=== PATIENT | female | born 1955 | race Caucasian/White ===

== ENCOUNTER → 2018-06-19 22:54 | Outpatient (CLI) | payer MEDICAID ==
[2016-05-04 12:03] VITALS: BMI 34.2
[~2018-06-19 22:54] MED LIST: ACCURETIC 10-121 TAB PO; ANAPROX DS550 MG PO; CRESTOR20 MG PO; GLUCOTROL XL 5 M5 MG PO; JANUMET 50-1,001 TAB PO; JARDIANCE25 MG PO; NEXIUM40 MG PO; TRICOR145 MG PO; VISTARIL50 MG PO
== END | disposition home or self-care (01) ==
LOC: D.MAMMO 06-12 10:00
DX: Z12.31 Encounter for screening mammogram for malignant neoplasm of breast (principal)

== ENCOUNTER 2018-11-26 14:38 | Emergency (ER) | payer MEDICAID ==
[~2018-11-26] VITALS: Ht 160 cm; Wt 78.6 kg
[2018-11-26 14:42] VITALS: Ht 160 cm; Wt 78.6 kg
[2018-11-26 15:29] LABS: BASOPHILS 0.4 % (0-2); EOSINOPHILS 0.5 % (0-7); HEMATOCRIT 34.3 % (36.0-48.0); HEMOGLOBIN 10.8 g/dL (12-16); IMMATURE GRANULOCYTES 0.3 % (0-5); LYMPHOCYTES 25.2 % (15-50); MCH 22.6 pg (26.0-34.0); MCHC 31.5 g/dL (31.0-37.0); MCV 71.9 fL (80.0-100.0); MEAN PLATELET VOLUME 10.1 fL (7.4-10.4); MONOCYTES 8.7 % (2-11); NEUTROPHILS 64.9 % (40-80); PLATELET COUNT 382 10x3/uL (130-400); RBC 4.77 10x6/uL (4.00-5.40); RDW 18.8 % (11.5-14.5); WBC 7.9 10x3/uL (4.8-10.8)
[2018-11-26 15:47] LABS: ALBUMIN 3.4 g/dL (3.4-5.0); ANION GAP 18.4 mmol/L (8-16); BILIRUBIN - TOTAL 0.46 mg/dL (0.2-1.3); CALCIUM 8.7 mg/dL (8.5-10.1); CARBON DIOXIDE 22.8 mmol/L (21.0-32.0); CREATININE - SERUM 1.7 mg/dL (0.6-1.3); POTASSIUM - SERUM 4.2 mmol/L (3.5-5.1); PROTEIN - SERUM 6.4 g/dL (6.4-8.2)
[2018-11-26 17:07] LABS: APPEARANCE CLEAR (CLEAR); BILIRUBIN NEGATIVE (NEGATIVE); COLOR YELLOW (YELLOW); GLUCOSE 1000 mg/dL (NEGATIVE); KETONE NEGATIVE (NEGATIVE); NITRITE NEGATIVE (NEGATIVE); PROTEIN NEGATIVE (NEGATIVE); SPECIFIC GRAVITY 1.025 (1.005-1.020); UROBILINOGEN NORMAL (NORMAL)
[2018-11-26] MEDS ORDERED: TAMIFLU75 MG PO (17:54)
[2018-11-26] MEDS ORDERED: GUAIFENESI100 MG/5 M PO (17:54)
[2018-11-26 18:51] VITALS: BP 121/61
== END 2018-11-26 18:51 | disposition home or self-care (01) ==
LOC: D.ER 14:38
PROVIDERS: Family Medicine
DX: J09.X2 Influenza due to identified novel influenza A virus with other respiratory manifestations (principal); E86.0 Dehydration

== ENCOUNTER 2019-05-04 21:28 | Observation (INO) | payer MEDICAID ==
[~2019-05-04] VITALS: Ht 160 cm; Wt 86.4 kg
--- NOTE | ~2019-05-04 | DS ---
PATIENT:BEATRIZ DOWELL :57 MEDICAL RECORD: [id number] DISCHARGE SUMMARY ADMISSION DATE: 05/04/19 DISCHARGE DATE: 05/05/19 DATE OF SERVICE: 05/05/2019 DATE OF DISCHARGE: 05/05/2019 DIAGNOSES: 1. Angina. 2. Shortness of breath. 3. Coronary artery disease. 4. Hypertension. 5. Hyperlipidemia. 6. Plp-mhgmeei-iijgsueiq diabetes. 7. Tachycardia. HOSPITAL COURSE: Ms. Dowell presents with anginal symptomatology and shortness of breath. Her troponin is normal. EKG is normal. She is on no medical therapy, had the addition of long-acting nitrate and beta-vilma. If she continues to have the symptomatology, would risk stratify with stress testing with Cardiolite imaging versus proceeding directly to coronary angiography. TRANSINT:[id number] Voice Confirmation ID: [id number] DOCUMENT ID: [id number] STACEY ANGEL MD CC: [id number] DICTATION DATE: 05/05/19 1114 WORKER'S COMPENSATION CLAIMS EXAMINER: 05/05/19 2343 DIS IN 05/05/19 [id number] [place] [address]
--- NOTE | ~2019-05-04 | HP ---
PATIENT: BEATRIZ DOWELL MEDICAL RECORD: [id number] ACCOUNT: [id number] LOCATION:[address] : 57 ADMISSION DATE: 05/04/19 PCP: LOUISE PICHARDO MD HISTORY AND PHYSICAL EXAMINATION DIAGNOSES: 1. Angina. 2. Shortness of breath. 3. Coronary artery disease. 4. Hypertension. 5. Hyperlipidemia. 6. Tachycardia. 7. Noninsulin-dependent diabetes. HISTORY OF PRESENT ILLNESS: Mrs. Dowell was seen in the office with increasing chest pain and shortness of breath. She presents to the hospital with the same. She is scheduled for a nuclear stress test and echocardiogram in 2 weeks. She is not on anything for blood pressure or tachycardia. She is pain free upon admit now. She has been having the shortness of breath and chest pain in an escalating fashion. PHYSICAL EXAMINATION: GENERAL APPEARANCE: Well-nourished, well-developed, appears stated age. Level of distress, comfortable. PSYCHIATRIC: Mental status, alert, normal affect. Orientation, oriented to time, place and person. EYES: Lids and conjunctiva, noninjected. No discharge, no pallor. ENT: Lips, teeth, gums, normal dentition. Oropharynx, no cyanosis, no pallor. NECK: Carotid arteries, bilateral normal upstroke, no bruits, no thrills. JUGULAR VEINS: No jugular venous pressure or distention. CERVICAL LYMPH NODES: Nontender, nonenlarged. THYROID: Not enlarged. Nontender. No nodules. LUNGS: Respiratory effort, unlabored. CHEST: Normal curvature. No thoracic deformity. No chest wall tenderness. Percussion, resonant. Auscultation, clear. No wheezes, no rales, no rhonchi. CARDIOVASCULAR: Precordial exam, nondisplaced. No heaves or pericardial thrills. Rate and rhythm, regular. Heart sounds, normal S1, normal S2. No S3, no gallop, no rub. Systolic murmur, not heard. Diastolic murmur, not heard. EXTREMITIES: No cyanosis, no edema. Peripheral pulses, full and equal in all extremities, except as noted. No bruits appreciated. ABDOMEN: Soft, nondistended. Normal aorta. No bruit. Nontender. No masses. Liver, nontender, no hepatomegaly. Spleen, nontender, no splenomegaly. MUSCULOSKELETAL: No joint tenderness. No joint swelling. No erythema. NEUROLOGICAL: Normal gait, normal strength, normal tone. SKIN: Warm and dry. OVERALL IMPRESSION: Normal EKG, normal troponin, but continued angina, on no medications. We will optimize her medical therapy with the addition of a beta-vilma and long-acting nitrate. If she continues to have discomfort despite this, we will either move up the stress test or go straight to coronary angiography if symptomatology warrants. TRANSINT:[id number] Voice Confirmation ID: [id number] DOCUMENT ID: [id number] HISTORY AND PHYSICAL [id number] BEATRIZ DOWELL JEFFREY MD CC: [id number] DICTATION DATE: 05/05/19 1114 GRAVEL MACHINE OPERATOR: 05/05/19 1143 DIS IN 05/05/19 [id number] [place] [address]
[~2019-05-04 21:28] MED LIST changes: -ANAPROX DS550 MG PO; -CRESTOR20 MG PO; +GUAIFENESI100 MG/5 M PO; +LIPITOR20 MG PO; +NAPROSYN500 MG PO; +TAMIFLU75 MG PO
[2019-05-04 21:44] LABS: BASOPHILS 0.5 % (0-2); EOSINOPHILS 4.3 % (0-7); HEMATOCRIT 30.1 % (36.0-48.0); HEMOGLOBIN 8.9 g/dL (12-16); IMMATURE GRANULOCYTES 0.1 % (0-5); LYMPHOCYTES 37.4 % (15-50); MCH 20.2 pg (26.0-34.0); MCHC 29.6 g/dL (31.0-37.0); MCV 68.3 fL (80.0-100.0); MEAN PLATELET VOLUME 9.4 fL (7.4-10.4); MONOCYTES 7.9 % (2-11); NEUTROPHILS 49.8 % (40-80); PLATELET COUNT 404 10x3/uL (130-400); RBC 4.41 10x6/uL (4.00-5.40); RDW 17.9 % (11.5-14.5); WBC 9.6 10x3/uL (4.8-10.8)
[2019-05-04 21:54] LABS: INR 1.05 (0.85-1.17); PROTIME 13.2 SECONDS (11.6-15.0)
[2019-05-04 21:55] LABS: APTT 31.7 SECONDS (22.8-39.4)
[2019-05-04 22:06] LABS: ALKALINE PHOSPHATASE 64 U/L (46-116); ALT (SGPT) 14 U/L (10-68); BILIRUBIN - TOTAL 0.37 mg/dL (0.2-1.3); CALC OSMOLALITY 290 mosm/kg (275-300); CALCIUM 9.3 mg/dL (8.5-10.1); CARBON DIOXIDE 25.8 mmol/L (21.0-32.0); CHLORIDE - SERUM 104 mmol/L (98-107); CREATININE - SERUM 1.6 mg/dL (0.6-1.3); PROTEIN - SERUM 7.6 g/dL (6.4-8.2); SODIUM 142 mmol/L (136-145); UREA NITROGEN 22 mg/dL (7-18); eGFR NON AFRICAN AMERICAN 35 mL/min (90-120)
[2019-05-04 22:08] LABS: GLUCOSE 180 mg/dL (74-106)
[2019-05-04 22:21] LABS: CKMB 0.6 U/L (0.0-3.6); CREATINE KINASE 72 UL (21-215); MAGNESIUM - SERUM 2.3 mg/dL (1.8-2.4)
[2019-05-04 22:24] LABS: TROPONIN-I < 0.017 ng/mL (0.000-0.060)
--- NOTE | 2019-05-05 00:17 | NUR ---
pT IN WITH C/O CHEST PAIN THAT RADIATES TO HER RIGHT JAW. CHEST PAIN STARTED ABOUT 5 DAYS AGO, HAS GOTTEN WORSE, AT BEDSIDE.
[2019-05-05 00:20] VITALS: BP 132/79
[2019-05-05] MEDS ORDERED: PIOGLITAZONE15 MG PO (00:53)
[2019-05-05] MEDS ORDERED: BAYER CHEWABLE81 MG PO (00:54)
[2019-05-05] MEDS ORDERED: TRULICITY1.5 MG/0.5 SC (00:54)
[2019-05-05] MEDS ORDERED: INVOKANA300 MG PO (00:55)
[2019-05-05] MEDS ORDERED: TRAZODONE HCL150 MG PO (00:56)
--- NOTE | 2019-05-05 01:20 | NUR ---
PT ARRIVED TO ROOM 2116 FROM ER, SPOUSE AT BED SIDE. PT IS AAO, WEARING GLASSES AND UPPER DENTURES. TELEMETRY APPLIED, PHARMACY DONE. MED REC COMPLETE. HISTORY UP TO DATE. PT DENIES ANY NEEDS. SNACK GIVEN TO PT, THAN PT WILL BE NPO UNTIL SEEN BY CARDIOLOGY. NAME AND DATE PLACED ON BOARD. BED LOW AND CALL LIGHT IN REACH. LEFT AC 20G NOTED. WILL CPOC
[2019-05-05 01:31] VITALS: BP 141/66; Ht 160 cm; Wt 86.4 kg
[2019-05-05 04:00] VITALS: BP 130/63
[2019-05-05 04:36] LABS: BASOPHILS 0.5 % (0-2); EOSINOPHILS 4.4 % (0-7); HEMATOCRIT 27.3 % (36.0-48.0); HEMOGLOBIN 8.1 g/dL (12-16); IMMATURE GRANULOCYTES 0.3 % (0-5); LYMPHOCYTES 39.6 % (15-50); MCH 20.5 pg (26.0-34.0); MCHC 29.7 g/dL (31.0-37.0); MCV 68.9 fL (80.0-100.0); MEAN PLATELET VOLUME 9.2 fL (7.4-10.4); MONOCYTES 8.4 % (2-11); NEUTROPHILS 46.8 % (40-80); PLATELET COUNT 328 10x3/uL (130-400); RBC 3.96 10x6/uL (4.00-5.40); RDW 17.9 % (11.5-14.5); WBC 7.3 10x3/uL (4.8-10.8)
[2019-05-05 05:08] LABS: ALBUMIN 3.3 g/dL (3.4-5.0); ALKALINE PHOSPHATASE 52 U/L (46-116); ALT (SGPT) 11 U/L (10-68); BILIRUBIN - TOTAL 0.33 mg/dL (0.2-1.3); CARBON DIOXIDE 25.8 mmol/L (21.0-32.0); CHLORIDE - SERUM 108 mmol/L (98-107); CKMB 0.4 U/L (0.0-3.6); CREATINE KINASE 58 UL (21-215); CREATININE - SERUM 1.5 mg/dL (0.6-1.3); POTASSIUM - SERUM 3.9 mmol/L (3.5-5.1); PROTEIN - SERUM 6.6 g/dL (6.4-8.2); SODIUM 142 mmol/L (136-145); UREA NITROGEN 22 mg/dL (7-18); eGFR NON AFRICAN AMERICAN 37 mL/min (90-120)
[2019-05-05 05:09] LABS: CALC OSMOLALITY 285 mosm/kg (275-300); GLUCOSE 101 mg/dL (74-106); TROPONIN-I < 0.017 ng/mL (0.000-0.060)
--- NOTE | 2019-05-05 05:16 | NUR ---
GLUCOSE WITH MORNING LABS IS 101 NO INSULIN NEEDED PER SLIDING SCALE, HAT AND SPECIMEN CUP GIVEN FOR URINE COLLECTION. PT VERBALIZED UNDERSTANDING. PT HAS BEEN NPO SINCE ARRIVING TO FLOOR. SIGN HANGING ON DOOR AND PT VERBALIZED UNDERSTANDING. SPOUSE AT BED SIDE. CALL LIGHT IN REACH. PT WILL CALL FOR ASSIST WHEN NEEDED. WILL CPOC
[2019-05-05 08:28] VITALS: BP 144/66
[2019-05-05] MEDS ORDERED: LOPRESSOR25 MG PO (09:27)
[2019-05-05] MEDS ORDERED: ISOSORBIDE MONO30 M1 PO (09:28)
[2019-05-05 10:11] LABS: CKMB 0.4 U/L (0.0-3.6); CREATINE KINASE 56 UL (21-215)
[2019-05-05 10:12] LABS: TROPONIN-I < 0.017 ng/mL (0.000-0.060)
--- NOTE | 2019-05-05 10:12 | NUR ---
IV AND TELEMETRY DCD. DC PLANS GIVEN. UNDERSTANDING VOICED.
--- NOTE | 2019-05-05 10:51 | NUR ---
ESCORTED TO CAR BY W/C.
--- NOTE | 2019-05-07 08:29 | MORECARE ---
CASE MANAGEMENT DISCHARGE SUMMARY PATIENT: BEATRIZ SHORT UNIT: [id number] ADM DATE: 05/04/19 AGE: 63 : 57 SEX: F ROOM/BED: D.8976 AUTHOR: FRANNIE MELCHOR PHYSICIAN: REFERRING PHYSICIAN: STACEY ANGEL MD DATE OF SERVICE: 05/07/19 Discharge Plan Patient Name: BEATRIZ SHORT Facility: [facility]:[place] : 1955 Planned Disposition: Home Anticipated Discharge Date: 05/05/19 Discharge Date: 05/05/2019 Expected LOS: 1 Initial Reviewer: [email or web address] Initial Review Date: 05/07/2019 Generated: 05/07/19 9:28 am Patient Name: BEATRIZ SHORT Page [id number] at 0829 All edits/amendments must be made on the electronic document DICTATION DATE: 05/07/19827 WASHER AND CAPPER MACHINE OPERATOR: ART 05/07/19827 RPT#: [id number] DC DATE:05/05/19 STATUS: DIS IN [facility] [address] [place] [address] END OF REPORT
== END 2019-05-05 10:52 | disposition home or self-care (01) ==
LOC: D.ER 21:28 → D.M2 23:21 → OBSVTIME 23:21 → D.M2 05-05 10:52
PROVIDERS: Family Medicine; ADMIT Internal Medicine Interventional Cardiology; ATTEND Internal Medicine Interventional Cardiology
DX: I25.119 Atherosclerotic heart disease of native coronary artery with unspecified angina pectoris (principal); I10 Essential (primary) hypertension; E78.5 Hyperlipidemia, unspecified; E11.9 Type 2 diabetes mellitus without complications; R00.0 Tachycardia, unspecified

== ENCOUNTER → 2019-05-21 08:43 | Outpatient (CLI) | payer MEDICAID ==
[2019-05-05 01:31] VITALS: BMI 33.7
[~2019-05-21 08:43] MED LIST changes: +ALDACTONE50 MG PO; +BAYER CHEWABLE81 MG PO; +INVOKANA300 MG PO; +ISOSORBIDE MONO30 M1 PO; +LASIX20 MG PO; +LOPRESSOR25 MG PO; +PIOGLITAZONE15 MG PO; +PROTONIX40 MG PO; +TRAZODONE HCL150 MG PO; +TRULICITY1.5 MG/0.5 SC
--- NOTE | 2019-05-25 09:56 | ST ---
PATIENT:BEATRIZ SHORT MEDICAL RECORD: [id number] SEX: F LOCATION:[facility] ORDER #: ADMISSION DATE: 05/21/19 AGE OF PATIENT: 63 REFERRING PHYSICIAN: INTERPRETING PHYSICIAN: STACEY ANGEL MD DATE OF SERVICE: 05/21/2019 PROCEDURE: Nuclear stress test. INDICATION: Angina, coronary artery disease, shortness of breath, dyspnea on exertion, edema, hypertension. TECHNIQUE: She was exercised on standard Lexiscan protocol with 33 mCi of sestamibi injected at peak stress, 11 mCi used previously for rest images. FINDINGS: Gated SPECT reveals preserved ejection fraction at 70% with decreased thickening and brightening throughout the anterior segments, preserved thickening and brightening throughout the remaining segments. SPECT imaging Cardiolite was used as myocardial perfusion agent. There is a fixed perfusion defect anteriorly suggestive of previous anterior myocardial infarction. This includes the basal, mid, apical anterior segments. There is; however, reversibility inferiorly as well as apically. This includes the basal, mid and apical inferior segments as well as the apex itself. The degree of reversibility is moderate. The amount of myocardium involved between the 2 defects is very large. OVERALL IMPRESSION: This is markedly abnormal high risk nuclear stress test suggestive of previous anterior myocardial infarction, ongoing ischemia inferiorly and apically suggestive of hemodynamically significant coronary artery disease and possibly multivessel coronary artery disease. TRANSINT:[id number] Voice Confirmation ID: [id number] DOCUMENT ID: [id number] STACEY ANGEL MD at 0956 CC: LOUISE PICHARDO MD [id number] DICTATION DATE: 05/22/19 1637 MARKETING ADMINISTRATOR: 05/22/19 2310 DEP CLI 05/21/19 [facility] [address] [place] [address]
--- NOTE | 2019-05-31 08:42 | EC ---
PATIENT:BEATRIZ SHORT DATE OF SERVICE: 05/21/19 SEX: F MEDICAL RECORD: [id number] DATE OF : 57 LOCATION:[facility] AGE OF PATIENT: 63 ADMISSION DATE: 05/21/19 REFERRING PHYSICIAN: INTERPRETING PHYSICIAN: JUANJO WILD MD ECHOCARDIOGRAM REPORT ECHO CHARGES 4 ECHO COMPLETE Date: 05/21/19 CLINICAL DIAGNOSIS: PEREZ/EDEMA/FATIGUE/JAW PAIN ECHOCARDIOGRAPHIC MEASUREMENTS (adult normal given) AC root (d.<3.7cm) 2.9 cm LV Septum d (<1.2 cm> 1.3 cm Valve Excursion 2.0 cm LV Septum (systole) 1.7 cm Left Atria (s.<4.0cm> 4.0 cm LVPW d(<1.2cm) 1.1 cm RV (d.<2.3cm) 2.4 cm LVPW (sytole) 1.9 cm LV diastole(<5.6CM) 5.4 cm MV E-F(>70mm/sec) cm LV systole 2.9 cm LVOT Diameter 1.9 cm MV exc.(>10mm) cm Est.ejection fraction (50-75%) % DOPPLER: LVIT cm/sec A 84.0 cm/sec E 121 cm/sec LA cm/sec RVSP 16.0 mmHg LVOT 118 cm/sec AOP1/2T m/s Asc. Ao 154 cm/sec RVOT 80.0 cm/sec RA cm/sec PA 87.0 cm/sec AV Gradient Peak 9.5 mmHg AV Mean 5.1 mmHg AV Area 1.9 cm MV Gradient Peak 6.9 mmHg MV Mean 3.2 mmHg MV Area cm COMMENTS: OP - HC Lock Operator: Roel LOWERYDSOE Table Attendant: 3 Dr. Comer TAPE# PACS Pericardial Effusion N DATE OF SERVICE: 05/21/2019 Adequate 2-D echo, color-flow and spectral Doppler, and M-mode. Borderline LVH. LV internal dimensions are normal. Wall motion is normal. EF is greater than or equal to 55%. Aortic valve is tricuspid. No evidence of stenosis by Doppler interrogation. Left atrium is normal at 4.0 cm. Mitral valve shows no prolapse. Trace MR. Right-sided chambers are grossly normal. Trace TR. ECHOCARDIOGRAM REPORT [id number] BEATRIZ SHORT TRANSINT:[id number] Voice Confirmation ID: [id number] DOCUMENT ID: [id number] JUANJO WILD MD at 0842 CC: [id number] DICTATION DATE: 05/22/19 1306 BOAT FUELER: 05/22/19 1340 DEP CLI 05/21/19 [id number] [place] [id number]
== END | disposition home or self-care (01) ==
LOC: D.HCCARDIO 08:43
PROVIDERS: ATTEND Internal Medicine Interventional Cardiology
DX: I25.10 Atherosclerotic heart disease of native coronary artery without angina pectoris (principal)

== ENCOUNTER 2019-05-31 11:19 | Outpatient (CLI) | payer MEDICAID ==
[~2019-05-31] VITALS: Ht 160 cm; Wt 88.6 kg
--- NOTE | ~2019-05-31 | HEMODYNAMI ---
PATIENT:BEATRIZ SHORT MEDICAL RECORD: [id number] : 57 LOCATION:[facility] ADMISSION DATE: 05/31/19 Generatedon:05/31/201913:53 Patient name: BEATRIZ SHORT Patient #: [id number] N: [id number] : 1955 Date of study: 05/31/2019 Page: Of Hemodynamic Procedure Report Patient Data Patient Demographics Procedure consent was obtained First Name: BEATRIZ Gender: Female Last Name: DEJA : 1955 [facility] Initial: L Age: 63 year(s) Patient #: [id number] Race: SSN: [id number] Additional ID: [id number] Contact details Address: [address] [place] [address] ROAD State: [place] City: [place] Zip code: [address] Past Medical History Allergies Allergen Reaction Date Comments Reported Other allergy 05/04/2016 Sulfa Other allergy 05/31/2019 SULFAMIDE Admission Admission Data Admission Date: 05/31/2019 Admission Time: 11:19 Arrival Date: 05/31/2019 Arrival Time: 0:00 Admit Source: Other Insurance Payor: Private health insurance [facility] #: [id number] Height (in.): 62.99 BSA: 1.91 (m2) Height (cm.): 160 BMI: 34.38 (kg/m2) Weight (lbs.): 194.01 Weight (kg.): 88 Lab Results Lab Result Date: 05/31/2019 Lab Result Time: 12:00 Biochemistry Name Units Result Min Max BUN mg/dl 26 --(----)-* 7 18 Creatinine mg/dl 1.6 --(----)-* 0.6 1.3 CBC Name Units Result Min Max Hematocrit % 28.3 *-(----)-- 42 54 Hemoglobin g/dl 8.4 *-(----)-- 13.5 17.5 Procedure Procedure Types Cath Procedure Diagnostic Procedure [facility] w/Coronaries Sedation Charges Moderate Sedation up to 15 minutes Procedure Description Procedure Date Procedure Date: 05/31/2019 Procedure Start Time: 13:27 Procedure End Time: 13:50 Procedure Staff Name Function Gerardo Jerry MD Performing Physician Silviano Nelson RT Monitor Tavo Sargent RT Scrub Sonam Guzmán RN Nurse Indication Shortness of breath Procedure Data Cath Procedure Fluoroscopy Diagnostic fluoroscopy Total fluoroscopy Time: 2.4 time: 2.4 min min Diagnostic fluoroscopy Total fluoroscopy dose: 311 dose: 311 mGy mGy Contrast Material Contrast Material Type Amount (ml) Isovue 300 43 Entry Location Entry Primary Successful Side Size Upsize Upsize Entry Closure Pascal ccessful Closure Location (Fr) 1 (Fr) 2 (Fr) Remarks Device Remarks Radial Right 6 Fr Mechanical artery Short Compression Estimated blood loss: 5 ml Diagnostic catheters Device Type Used For End Catheter Placement DIAGNOSTIC Gallup 110cm 5 Procedure Fr catheter ([id number]) Procedure Complications No complications Procedure Medications Medication Administration Route Dosage Oxygen etCO2 Nasal cannula 2 l/min Lidocaine 2% added to field 20 Heparin Flush Bag added to field 2 bags (1000units/500ml NS) 0.9% NaCl I.V. 100 ml/hr Versed I.V. 1 mg Fentanyl I.V. 50 mcg Versed I.V. 1 mg Fentanyl I.V. 50 mcg Versed I.V. 0.5 mg Radial Cocktail I.A. 1 syringe (Verapamil 2mg/Nitro 400mcg/Heparin 1500units) Hemodynamics Rest BSA: 1.91 (m2) O2 Consumption: Estimated: 178.79 (ml/min) O2 Consumption indexed : Estimated:93.61 (ml/min/m) Heart Rate: 68 (bpm) Pressure Samples Time Site Value (mmHg) Purpose Heart Use Rate(bpm) 13:47 LV 90/31,15 Snapshot 85 13:47 AO 102/55(75) Pullback 72 13:47 LV 89/45,14 Pullback 72 Gradients Valve Time Site 1 Site 2 Mean SEP/DFP Peak To Heart Use (mmHg) (sec/min) Peak Rate (mmHg) (bpm) Aortic 13:47 LV AO 0 54 0 72 89/45,14 102/55(75) Calculations Valve P-P Mean Valve Index Valve Source Name Gradient Area Flow (cm2) Aortic 0 0 0 0 Snapshots Pre Cath Intra NCS Post Cath Vital Signs Time Heart Resp SPO2 etCO2 NIBP Rhythm Pain Sedation Rate (ipm) (%) (mmHg) (mmHg) Status Level (bpm) 13:24:42 69 16 98 41.3 111/59(86) NSR 0 (11) 10(A) , No pain 13:29:13 65 13 97 38.3 115/55(80) NSR 0 (11) 10(A) , No pain 13:33:11 66 13 95 39.1 109/57(76) NSR 0 (11) 9(A) , No pain 13:37:08 65 13 96 39.8 109/58(77) NSR 0 (11) 9(A) , No pain 13:41:08 69 14 95 36.1 96/52(70) NSR 0 (11) 9(A) , No pain 13:45:05 66 14 96 36 98/53(71) NSR 0 (11) 9(A) , No pain 13:49:36 67 15 98 40.6 107/61(87) NSR 0 (11) 10(A) , No pain Medications Time Medication Route Dose Verified Delivered Reason Notes Effectiveness by by 13:23:27 Oxygen etCO2 2 l/min Gerardo Masters used for Nasal St Micah Guzmán RN procedure cannula 13:23:34 Lidocaine 2% added 20ml Gerardo Carrillo for local to vial [facility] anesthetic field MD FAUSTIN 13:23:40 Heparin Flush added 2 bags Gerardo Carrillo used for Bag to [facility] procedure (1000units/500ml field MD FAUSTIN NS) 13:23:50 0.9% NaCl I.V. 100 Gerardo Masters Per ml/hr St Micah Guzmán RN physician 13:26:34 Versed I.V. 1 mg Gerardo Masters for sedation St Micah Guzmán RN, MD 13:26:40 Fentanyl I.V. 50 mcg Gerardo Masters for sedation St Micah Guzmán RN, MD 13:32:32 Versed I.V. 1 mg Gerardo Masters for sedation St Micah Guzmán RN, MD 13:32:35 Fentanyl I.V. 50 mcg Gerardo Masters for sedation St Micah Guzmán RN, MD 13:34:18 Radial Cocktail I.A. 1 Gerardo Carrillo for (Verapamil syringe [facility] vasodilation 2mg/Nitro MD FAUSTIN 400mcg/Heparin 1500units) 13:40:42 Versed I.V. 0.5 mg Gerardo Masters for sedation St Micah Guzmán RN, MD Procedure Log Time Note 13:00:14 Tavo Sargent RT(R) sent for patient. Start room use. 13:07:09 Informed consent obtained and on chart 13:08:07 Patient Weight : 194.01 lbs 13:08:10 Patient Height : 62.99 inches 13:08:16 Insurance Payor : Private health insurance 13:08:30 Arrival Date: 05/31/2019 12:00:00 AM 13:08:31 Admit Source: Other 13:10:13 Lab Result : Hemoglobin 8.4 g/dl 13:10:13 Lab Result : Creatinine 1.6 mg/dl 13:10:13 Lab Result : BUN 26 mg/dl 13:10:13 Lab Result : Hematocrit 28.3 % 13:10:26 Diagnostic Cath Status : Elective 13:10:33 Indication : Shortness of breath 13:11:06 ACC Patient presents with Unstable Angina CCS Anginal Class 3--Marked limitation of physical activity, angina occurs with ordinary activity.. 13:11:09 ACCPatient has been prescribed/administered the following anti-anginal medication within the last 2 weeks: None 13:11:12 Procedure Status Elective Heart Cath (OP). 13:11:15 Time tracking: Regular hours (M-F 7:00 - 5:00) 13:11:18 Plan of Care:Hemodynamics will remain stable., Cardiac rhythm will remain stable., Comfort level will be maintained., Respiratory function will remain adequate., Patient/ family verbilizes understanding of procedure., Procedure tolerated without complication., Recovers from procedure without complications.. 13:11:28 H&P Date Dictated: 05/03/2019 Within 30 days and on chart., H&P Addendum completed by physician on day of procedure. (MUST COMPLETE FOR ALL OUTPATIENTS). 13:11:31 Lab results completed and on chart. 13:13:22 Patient received from Pre/Post Procedure Room to CCL 2 Alert and oriented. Tansferred to table in Supine position. 13:13:24 Warm blankets applied, and weston hugger turned on for patient comfort. 13:13:24 Correct patient and procedure confirmed by team. 13:13:25 ECG and BP/O2 sat monitors applied to patient. 13:13:26 Pre-procedure instructions explained to patient. 13:13:26 Pre-op teaching completed and patient verbalized understanding. 13:13:27 Family in waiting room. 13:13:30 Patient NPO since Breakfast. 13:13:46 Patient allergic to Other allergySULFAMIDE 13:23:10 Vital chart was started 13:23:27 Oxygen 2 l/min etCO2 Nasal cannula was administered by Sonam Guzmán RN; used for procedure; 13:23:34 Lidocaine 2% 20ml vial added to field was administered by Gerardo Jerry MD; for local anesthetic; 13:23:40 Heparin Flush Bag (1000units/500ml NS) 2 bags added to field was administered by Gerardo Jerry MD; used for procedure; 13:23:50 0.9% NaCl 100 ml/hr I.V. was administered by Sonam Guzmán RN; Per physician; 13:24:26 Baseline sample Acquired. 13:24:28 Rhythm: sinus rhythm 13:24:30 Full Disclosure recording started 13:24:32 Is the patient allergic to Iodine/contrast media? No. 13:24:33 Is patient on blood thinner?No 13:24:34 Patient diabetic? Yes. 13:24:35 If diabetic: On Metformin? Yes 13:24:41 If on Metformin: Last Dose? 05/29/2019 13:24:43 Previous problem with sedation/anesthesia? No ? 13:24:44 Snore? Yes 13:24:45 Sleep apnea? No 13:24:46 Deviated septum? No 13:24:47 Opens mouth fully? Yes 13:24:48 Sticks out tongue? Yes 13:24:49 Airway obstruction? No ? 13:24:52 Dentures? Yes OUT 13:24:54 Pre procedure: right dorsailis pedis pulse 2+ Normal; easily identifiable; not easily obliterated 13:24:56 Modified Rip's test Ulnar < 7 seconds 13:24:57 Patient pain scale 0/10 ?. 13:25:02 IV patent on arrival in left forearm with 0.9% NaCl at [facility]. 13:25:06 Right Radial & Right Groin area was prepped with chlora-prep and draped in sterile fashion 13:25:07 Alarms reviewed by R. N. 13:25:07 Sharps counted by scrub and verified by R.N. 13:25:12 Use device set Radial Dx or PCI 13:25:13 ACIST Syringe (87968) opened to sterile field. 13:25:13 Medline Cath Pack ([id number]) opened to sterile field. 13:25:14 Bag Decanter (2002S) opened to sterile field. 13:25:14 ACIST Hand Control (63151) opened to sterile field. 13:25:14 ACIST Manifold (69799) opened to sterile field. 13:25:15 Tegaderm 4 x 4 (1626W) opened to sterile field. 13:25:15 MBrace Wrist Support ([id number]) opened to sterile field. 13:25:17 SHEATH 6FR RAIN (8276440) opened to sterile field. 13:25:18 EMERALD Guide Wire (249-697) opened to sterile field. 13:25:28 Physician arrived 13:25:28 --------ALL STOP TIME OUT------ 13:25:29 Final Timeout: patient, procedure, and site verified with staff and physician. All members of the team are in agreement. 13:25:30 Right Radial & Right Groin site verified by team. 13:25:33 Fire Safety Assessment: A--An alcohol-based skin anteseptic being used preoperatively., C--Open oxygen or nitrous oxide is being used., D--An ESU, laser, or fiber-optic light is being used. 13:25:35 Physical assessment completed. ASA score P 2 - A patient with mild systemic disease as per Gerardo Jerry MD. 13:25:46 3b) 30-44 Moderately reduced kidney function. 13:26:00 Maximum allowable contrast dose (3.7 X eGFR X 0.75)97 ml. 13:26:03 Sedation plan: IV Moderate Sedation Medication:Versed, Fentanyl 13:26:07 Procedure started. 13:26:34 Versed 1 mg I.V. was administered by Sonam Guzmán RN; for sedation; 13:26:40 Fentanyl 50 mcg I.V. was administered by Sonam Guzmán RN; for sedation; 13:27:48 Local anesthetic to right radial artery with Lidocaine 2% by Gerardo Jerry MD.INITIAL ACCESS ONLY 13:30:16 A 6 Fr Short sheath was inserted into the Right Radial artery 13:32:32 Versed 1 mg I.V. was administered by Sonam Guzmán RN; for sedation; 13:32:35 Fentanyl 50 mcg I.V. was administered by Sonam Guzmán RN; for sedation; 13:33:26 Zero performed for pressure channel P1 13:34:18 Radial Cocktail (Verapamil 2mg/Nitro 400mcg/Heparin 1500units) 1 syringe I.A. was administered by Gerardo Jerry MD; for vasodilation; 13:40:42 Versed 0.5 mg I.V. was administered by Sonam Guzmán RN; for sedation; 13:45:47 A DIAGNOSTIC Gallup 110cm 5 Fr catheter (863006) was advanced over the wire and used for Procedure. 13:47:31 LV gram done using ARMSTRONG 13:47:34 Injector settings: Ml/sec: 5, Volume: 15, 13:47:35 LV hemodynamics recorded. 13:47:52 EF : 55 % 13:47:56 RCA angiography performed. 13:48:44 LCA angiography performed. 13:48:52 Catheter removed. 13:48:56 ZEPHYR REGULAR TR BAND ([id number]) opened to sterile field. 13:49:08 Sheath removed intact; hemostasis achieved with Mechanical Compression to the Right Radial artery. 13:49:13 Procedure ended.(Physican Out) 13:49:25 Procedure ended.(Physican Out) 13:49:28 Fluoroscopy time 02.40 minutes. 13:49:32 Fluoroscopy dose: 311 mGy 13:49:32 Flurop Dose total: 311 13:49:37 Dose Area Product 84069 mGy/cm. 13:49:41 Contrast amount:Isovue 300 43ml. 13:49:42 Maximum allowable dose exceeded? No. 13:49:43 Sharps counted by scrub and verified by R.N. 13:49:45 Marianna band inflated with 12cc of air. 13:49:46 Insertion/operative site no bleeding no hematoma. 13:49:54 Post right radial artery:stable, soft, clean and dry 13:49:55 Post Procedure Pulses reassessed and unchanged 13:49:57 Post-procedure physical assessment completed. ASA score P 2 - A patient with mild systemic disease as per Gerardo Jerry MD. 13:49:58 Post procedure rhythm: unchanged. 13:50:02 Estimated blood loss: 5 ml 13:50:04 Post procedure instruction explained to patient.Patient verbalizes understanding. 13:50:04 Patient needs reinforcement of post procedure teaching. 13:50:14 Procedure type changed to Cath procedure, Diagnostic procedure, LHC, LHC w/Coronaries, Sedation Charges, Moderate Sedation up to 15 minutes 13:50:32 ACCDominant side:Co-Dominant 13:50:35 Procedure and supply charges have been captured, reviewed, submitted and are correct. 13:50:37 Procedure Complication : No complications 13:50:38 Vital chart was stopped 13:50:39 See physician's report for complete and final results. 13:50:40 Report given to Pre/Post Procedure Room. 13:50:42 Patient transfered to Pre/Post Procedure Room with Stretcher. 13:50:43 Procedure ended. 13:50:43 Full Disclosure recording stopped 13:50:49 End room use (Document Last) Device Usage Item Name Manufacture Quantity Catalog Hospital Part Current Minima l Lot# / Number Charge Number Stock Stock Serial# Code ACIST Acist 1 85719 [id number] [id number] [id number] 20 Syringe Medical (86373) Systems Inc Medline Medline 1 [id number] 838350 97809 814647 5 Cath Pack ([id number]) Bag Microtek 1 2001S 377291 03000 454741 5 Decanter Medical Inc. () ACIST Hand Acist 1 04523 298766 226400 998832 5 Control Medical (19300) Systems Inc ACIST Acist 1 98532 002240 719471 835112 5 Manifold Medical (57381) Systems Inc Tegaderm 4 3M 1 1626W 112146 148223 366067 5 x 4 (1626W) MBrace Advanced 1 140-0250-00 748236 44217 354042 5 Wrist Vascular Support Dynamics ([id number]) SHEATH 6FR Cardinal 1 [id number] 182732 0491624 045473 5 RAIN [facility] (0772315) EMERALD Cardinal 1 721-405 489330 784770 637288 5 Guide Wire [facility] (044-889) DIAGNOSTIC Terumo 1 40-5013 272084 153195 600095 5 Gallup 110cm 5 Fr catheter (898579) ZEPHYR Cardinal 1 963975 060587 4632525 067522 5 REGULAR TR Health BAND (508750) Signature Audit [place] Stage Time Signature Unsigned Intra-Procedure 05/31/2019 Silviano Nelson 1:53:16 PM RT(R) Signatures Performing Physician : Signature : Gerardo Jerry MD Date : Time : Monitor : Silviano Nelson RT Signature : Date : Time : Nurse : Sonam Guzmán RN Signature : Date : Time : [address] [place] [address]
[~2019-05-31 11:19] MED LIST changes: -ALDACTONE50 MG PO; -LASIX20 MG PO; -PROTONIX40 MG PO
[2019-05-31] MEDS ORDERED: ALDACTONE50 MG PO (11:47)
[2019-05-31] MEDS ORDERED: PIOGLITAZONE15 MG PO (11:54)
[2019-05-31] MEDS ORDERED: PROTONIX40 MG PO (11:55)
[2019-05-31] MEDS ORDERED: LASIX20 MG PO (11:56)
[2019-05-31 12:04] VITALS: BP 109/40; Ht 160 cm; Wt 88.6 kg
[2019-05-31 12:14] LABS: BASOPHILS 0.8 % (0-2); EOSINOPHILS 3.4 % (0-7); HEMATOCRIT 28.3 % (36.0-48.0); HEMOGLOBIN 8.4 g/dL (12-16); IMMATURE GRANULOCYTES 0.1 % (0-5); LYMPHOCYTES 35.9 % (15-50); MCHC 29.7 g/dL (31.0-37.0); MCV 67.2 fL (80.0-100.0); MEAN PLATELET VOLUME 9.7 fL (7.4-10.4); MONOCYTES 6.7 % (2-11); NEUTROPHILS 53.1 % (40-80); PLATELET COUNT 341 10x3/uL (130-400); RBC 4.21 10x6/uL (4.00-5.40); RDW 18.8 % (11.5-14.5); WBC 7.4 10x3/uL (4.8-10.8)
[2019-05-31 12:26] LABS: ANION GAP 13.1 mmol/L (8-16); CALCIUM 9.7 mg/dL (8.5-10.1); CARBON DIOXIDE 28.9 mmol/L (21.0-32.0); CHOL - HDL RATIO 2.9 ratio (2.3-4.1); CREATININE - SERUM 1.6 mg/dL (0.6-1.3); LDL-HDL RATIO 1.4 ratio (1.5-3.5)
--- NOTE | 2019-05-31 14:02 | NUR ---
PT ARRIVED BY STRETCHER. PLACED ON MONITORS. ASSESSMENT COMPLETED. VSS. CALL LIGHT WITHIN REACH. FAMILY AT BEDSIDE. PT INSTRUCTED TO KEEP RIGHT WRIST STRAIGHT.
--- NOTE | 2019-05-31 14:17 | NUR ---
PT RESTING COMFORTABLY. VSS. RIGHT RADIAL TR BAND IN PLACE. NO S/S OF HEMATOMA NOTED. FAMILY AT BEDSIDE. PT DENIES NAUSEA. TOLERATING SIPS OF WATER AT THIS TIME.
--- NOTE | 2019-05-31 15:00 | NUR ---
HOB ELEVATED, SANDWICH TRAY AND DRINK SERVED. Z BAND AND IMMOBILIZER IN PLACE, DRESSING CDI. AIR REMOVAL PROCESS BEGAN PER PROTOCOL, 3CC AIR REMOVED W/O BLEEDING NOTED. O2 REMOVED, SAT 97 ON ROOM AIR. HR NSR RATE 66, BP 97/52. CALL LIGHT IN REACH, AT BEDSIDE.
--- NOTE | 2019-05-31 15:30 | NUR ---
PT SITTING UP WATCHING TV. DENIES ANY PAIN OR DISCOMFORT. Z BAND AND IMMOBILIZER IN PLACE, 3 ADD'L CC AIR REMOVED W/O BLEEDING OR SWELLING NOTED. ARM PINK AND WARM, CAP REFILL BRISK. CALL LIGHT IN REACH. REMAINS AT BEDSIDE
--- NOTE | 2019-05-31 15:50 | NUR ---
DISCHARGE INSTRUCTIONS REVIEWED W PT AND , BOTH VERBALIZED UNDERSTANDING. IV REMOVED W CATH INTACT, MONITORS REMOVED. Z BAND AND IMMOBILIZER IN PLACE. PT UP TO DRESS FOR DISCHARGE.
--- NOTE | 2019-05-31 16:00 | NUR ---
Z BAND AND REMAINING AIR REMOVED, NO BLEEDING OR SWELLING NOTED. 2X2 AND TEGADERM DRESSING APPLIED, IMMOBILIZER REPOSITIONED. 1605 PT DISCHARGED VIA WC TO IN PRIVATE VEHICLE WITH ALL BELONGINGS
--- NOTE | 2019-06-05 14:28 | OP ---
PATIENT NAME: BEATRIZ SHORT MEDICAL RECORD: [id number] :57 LOCATION:D.CAT ADMISSION DATE: SURGEON: JUANJO WILD MD DATE OF OPERATION: 05/31/2019 PROCEDURE: Left heart catheterization, selective coronary angiography, right radial approach. CATHETERS: Radial sheath, Trilla catheter. The procedure was well tolerated. The patient returned to mata. Sheath removed. A TR band was placed. FINDINGS: Left ventriculography in 30-degree ARMSTRONG view: Normal wall motion, normal systolic function. CORONARY ANATOMY: LEFT MAIN: Left main is free of disease. LAD: Free of disease in the diagonal system. CIRCUMFLEX: Free of disease in the marginal system. RIGHT CORONARY ARTERY: Dominant artery, gives rise to PDA, free of disease. IMPRESSION: Normal left ventricular systolic function, normal coronary anatomy. TRANSINT:[id number] Voice Confirmation ID: [id number] DOCUMENT ID: [id number] JUANJO WILD MD at 1428 CC: [id number] DICTATION DATE: 05/31/19 1402 STENCIL MAKER: 05/31/19 1428 DEP CLI 05/31/19 [place] [id number] [place] [id number]
== END 2019-05-31 16:05 | disposition home or self-care (01) ==
LOC: D.CATH 11:19
PROVIDERS: ATTEND Internal Medicine Interventional Cardiology
DX: R06.02 Shortness of breath (principal); Z01.812 Encounter for preprocedural laboratory examination; I20.9 Angina pectoris, unspecified

== ENCOUNTER 2021-01-09 11:45 | Outpatient (CLI) | payer BC ==
[2019-05-31 12:04] VITALS: BMI 34.6
[~2021-01-09 11:45] MED LIST changes: +ALDACTONE50 MG PO; +LASIX20 MG PO; +PROTONIX40 MG PO
== END 2021-01-09 12:15 | disposition home or self-care (01) ==
LOC: D.MAMMO 11:45
PROVIDERS: ATTEND Family Medicine
DX: Z12.31 Encounter for screening mammogram for malignant neoplasm of breast (principal)